=== PATIENT | female | born 1970 | race Two or more races ===

== ENCOUNTER 2021-09-21 07:48 | Observation (INO) | payer OTHER ==
[2021-09-21 08:08] VITALS: BMI 36.4
[2021-09-21] MEDS ORDERED: ACETAMINOPHEN 325 MG TABLET (FP) PO ONE (09:18)
[2021-09-21] MEDS ORDERED: ACETAMINOPHEN 325 MG TABLET (FP) ONE (09:30)
[2021-09-21 09:52] LABS: BASO % 0.7 % (0-2.0); HEMATOCRIT 23.4 % (32.4-45.2); LYMPH % 20.9 % (8-40); MCH 20.9 pg (25.7-33.7); MCHC 29.3 g/dl (32.0-36.0); MEAN CELL VOLUME 71.2 fl (80-96); MEAN PLT VOLUME 8.9 fl (7.5-11.1); NEUT % 69.4 % (42.8-82.8); PLATELET COUNT 336 10^3/uL (134-434); RBC 3.29 M/mm3 (3.60-5.2); RDW 19.7 % (11.6-15.6); WHITE BLOOD COUNT 4.9 K/mm3 (4.0-10.0)
[2021-09-21 09:59] LABS: INR 1.04 (0.83-1.09)
[2021-09-21 10:02] LABS: ACTIVATED PTT 30.7 SECONDS (25.2-36.5)
[2021-09-21 10:03] LABS: HEMOGLOBIN 6.9 GM/dL (10.7-15.3)
[2021-09-21 10:11] LABS: ALBUMIN 3.9 g/dl (3.4-5.0); BLOOD UREA NITROGEN 8.2 mg/dL (7-18); CALCIUM 8.7 mg/dL (8.5-10.1)
[2021-09-21 10:14] LABS: CREATININE 0.5 mg/dL (0.55-1.3)
[2021-09-21 10:16] LABS: BILIRUBIN,TOTAL 0.2 mg/dL (0.2-1); TOT PROT 7.4 g/dl (6.4-8.2)
[2021-09-21] MEDS ORDERED: METOCLOPRAMIDE HCL INJECTION 10 MG/2 ML VIAL IVPUSH ONE (10:25)
[2021-09-21 10:28] LABS: ANISOCYTOSIS 3+; MACROCYTOSIS 0
[2021-09-21] MEDS ORDERED: METOCLOPRAMIDE HCL INJECTION 10 MG/2 ML VIAL ONE (10:33)
[2021-09-21 18:13] LABS: BASO % 0.7 % (0-2.0); EOS % 0.6 % (0-4.5); HEMATOCRIT 26.3 % (32.4-45.2); HEMOGLOBIN 8.1 GM/dL (10.7-15.3); LYMPH % 28.5 % (8-40); MCHC 30.6 g/dl (32.0-36.0); MEAN PLT VOLUME 8.6 fl (7.5-11.1); MONO % 7.9 % (3.8-10.2); NEUT % 62.3 % (42.8-82.8); PLATELET COUNT 347 10^3/uL (134-434); RBC 3.66 M/mm3 (3.60-5.2); RDW 20.7 % (11.6-15.6); WHITE BLOOD COUNT 5.8 K/mm3 (4.0-10.0)
[2021-09-21] MEDS ORDERED: FERROUS SO4 325 MG TABLET (FP) PO SCH ×2 (22:00→23:25)
[2021-09-21] MEDS ORDERED: FERROUS SO4 325 MG TABLET (FP) ONE (23:45)
[2021-09-22] MEDS ORDERED: ACETAMINOPHEN 325 MG TABLET (FP) PO ONE (06:43)
[2021-09-22] MEDS ORDERED: ACETAMINOPHEN 325 MG TABLET (FP) ONE (07:31)
[2021-09-22 08:14] LABS: BASO % 1.2 % (0-2.0); EOS % 2.6 % (0-4.5); HEMATOCRIT 24.9 % (32.4-45.2); HEMOGLOBIN 7.7 GM/dL (10.7-15.3); LYMPH % 23.9 % (8-40); MCH 22.2 pg (25.7-33.7); MEAN CELL VOLUME 71.7 fl (80-96); MEAN PLT VOLUME 9.6 fl (7.5-11.1); MONO % 7.6 % (3.8-10.2); NEUT % 64.7 % (42.8-82.8); PLATELET COUNT 332 10^3/uL (134-434); RBC 3.48 M/mm3 (3.60-5.2); RDW 19.9 % (11.6-15.6); WHITE BLOOD COUNT 5.4 K/mm3 (4.0-10.0)
[2021-09-22 08:19] LABS: BLOOD UREA NITROGEN 7.9 mg/dL (7-18)
[2021-09-22 08:22] LABS: CALCIUM 8.9 mg/dL (8.5-10.1); CREATININE 0.5 mg/dL (0.55-1.3)
[2021-09-22] MEDS ORDERED: ASCORBIC ACID 500 MG TABLET (FP) PO SCH (10:00)
[2021-09-22] MEDS ORDERED: FERROUS SO4 325 MG TABLET (FP) ONE (10:20)
[2021-09-22] MEDS ORDERED: ASCORBIC ACID 500 MG TABLET (FP) ONE (10:20)
[2021-09-22] MEDS ORDERED: IRON SUCROSE INJECTION 300 MG in SODIUM CHLORIDE 235 ML IVPB ONE (12:30)
[2021-09-22 13:38] VITALS: BP 167/80; PULSE 78; TEMP 98.2
== END 2021-09-22 13:34 | disposition home or self-care (01) ==
LOC: JER 07:48 → UNDOADMOB 13:38 → JERBED 13:38 → INTOOBSV 13:38 → JERBED 17:12
PROVIDERS: ADMIT Internal Medicine; ATTEND Internal Medicine
PROC: 3E033GC Introduction of Other Therapeutic Substance into Peripheral Vein, Percutaneous Approach (ICD-10-PCS; principal; 2021-09-21)
PROC: 30233N1 Transfusion of Nonautologous Red Blood Cells into Peripheral Vein, Percutaneous Approach (ICD-10-PCS; 2021-09-21)
DX: N92.0 Excessive and frequent menstruation with regular cycle (principal); D64.9 Anemia, unspecified; I10 Essential (primary) hypertension; R51.9 Headache, unspecified; R42 Dizziness and giddiness; R22.0 Localized swelling, mass and lump, head; E66.8 Other obesity; Z68.36 Body mass index [BMI] 36.0-36.9, adult
CPT/HCPCS: 0241U-QW; 36415; 36430; 70450-TC; 80048; 80053; 82272; 82728; 83540; 83550; 83615; 84484; 84703; 85025; 85610; 85730; 86850; 86900; 86901; 86922; 93005; 93010; 96365; 96375; 99285-25; G0378; J1756; P9058